=== PATIENT | male | born 1960 | race African-American/Black ===

== ENCOUNTER 2016-10-18 14:22 | Emergency (ER) | payer OTHER, MEDICAID ==
[~2016-10-18] VITALS: Ht 162.6 cm; Wt 72.6 kg
[2016-10-18 15:24] VITALS: BP 119/81
[2016-10-18] MEDS ORDERED: INDOMETHACIN50 MG PO (15:25)
[2016-10-18 15:31] VITALS: BP 119/81
--- NOTE | 2016-10-18 20:35 | Emergency Room Report ---
History of Present Illness General Chief Complaint: Pain Source: Patient Present Illness [facility] The patient is a 55-year-old male presenting for left toe pain which began when he prior for no known reason. denies any injury to the area. Pain is described as a 10 out of 10 sharp sensation and does not radiate. Pain worse with touch and movement. He has not tried any medication yet. He denies history of gout. He denies any other symptoms including F, chills, numbness/tingling Allergies: Coded Allergies: No Known Allergies (Unverified , 10/18/16) Patient History Past Medical History: see triage record Pertinent Family History: none Reviewed Nursing Documentation: PMH: Agreed, PSxH: Agreed Nursing Documentation-PMH Past Medical History: No Stated History Review of Systems All Other Systems: negative except mentioned in HPI Physical Exam Vital Signs Date Time Temp Pulse Resp B/P Pulse Ox O2 Delivery O2 Flow Rate FiO2 10/18/16 14:37 98.1 63 14 119/81 95 Room Air Sp02 EP Interpretation: reviewed, normal General Appearance: no apparent distress, alert, GCS 15, non-toxic Head: normocephalic, atraumatic Eyes: bilateral eye PERRL, bilateral eye normal inspection ENT: hearing grossly normal, normal pharynx, no angioedema, normal voice Neck: full range of motion, supple/symm/no masses Musculoskeletal: swelling - L 1st toe, tender - tender to the L 1st toe with soft palpation Neurologic: alert, oriented x3, responsive, motor strength/tone normal, sensory intact, speech normal Psychiatric: judgement/insight normal, memory normal, mood/affect normal, no suicidal/homicidal ideation Skin: other - erythema to L 1st toe Lymphatic: no adenopathy Medical Decision Making PA Attestation Dr. Patel is my supervising physician. Patient management was discussed with my supervising physician Diagnostic Impression: Primary Impression: Gout Qualified Codes: M10.9 - Gout, unspecified ER Course The patient is a 55-year-old male presenting for left toe pain Ddx considered include but not limited to gout, sprain/strain, fracture, contusion PE: vitals WNL. NAD There is erythema and edema to the L great toe. TTP . X-ray unremarkable. The patient is given colchicine in the ED and will be DC'ed home with indomethacin. ER precautions given Other X-Ray Diagnostic Results Other X-Ray Diagnostic Results : X-Ray Ordered: L foot Date: Oct 18, 2016 Findings: no fractures, no dislocation, no soft tissue swelling Number of Views: 3 PA Scribe Text I am acting as scribe for my supervising physician. My supervising physician's interpretation of the L foot xrays are there are no fractures, dislocations or soft tissue swelling. Last Vital Signs Date Time Temp Pulse Resp B/P Pulse Ox O2 Delivery O2 Flow Rate FiO2 10/18/16 15:31 98.1 14 119/81 95 Room Air 10/18/16 14:37 63 Status: improved Disposition: HOME, SELF-CARE Condition: Improved Scripts Indomethacin (INDOMETHACIN) 50 Mg Capsule 50 MG PO Q8HR, #15 CAP Prov: CRISS COOLEY 10/18/16 Referrals: NON PHYSICIAN (PCP) Patient Instructions: Low-Purine Diet, Gout Additional Instructions: I discussed my findings with the patient. All questions and concerns have been answered. Treatment and medication compliance have been addressed. I advised the patient that they need to follow up with PMD in 3-5 days. Return to ED if pain remains or worsens, numbness or tingling occurs, new rash is noticed, fever is noticed, or if needed for any reason. Patient verbalized understanding of discharge instructions. CRISS COOLEY Oct 18, 2016 20:35
--- NOTE | 2016-10-19 09:38 | Diagnostic Imaging Report ---
Indication: PAIN Technique: 3 views left foot Comparison: none Findings: Oblique lucency is seen through the first metatarsal head neck junction on the oblique view only, not confirmed on other views. There is mild hallux longus and metatarsus adductus. No other evidence of acute fracture. No dislocations. The joint spaces are preserved. Impression: Lucency through the first metatarsal head neck junction on the oblique view, probably represents and overlying soft tissue lucency, as per discussion with the ER nurse practitioner patient presents with clinical evidence of arthropathy rather than trauma. Correlation with clinical findings unless recommended No acute process otherwise Mild deformity as described
== END 2016-10-18 15:31 | disposition home or self-care (01) ==
LOC: EMR 15:20
DX: M10.9 Gout, unspecified (principal)
CPT/HCPCS: 99283